=== PATIENT | female | born 1945 | race Caucasian/White ===

== ENCOUNTER → 2018-12-15 | Outpatient (CLI) | payer OTHER ==
[~2018-12-15] MED LIST: ADVIL100 M2 PO; ASPIRIN EC81 M1 PO; BIOTIN2500 MCG; CALTRATE 600 +1 EACH PO; FISH OIL 1,0001 EAC5 PO; GLUCOSAMINE CH1 EAC8 PO; HYDROCODONE-AP1 EAC6 PO; LOSARTAN-HCTZ1 EAC1 PO; LOVASTAT40; MELOXICAM7.5 MG PO; MULTIVITAMINS; NAPROSYN500 MG PO; OXYBUTYNIN 5 MG5 M2; TIROSINT100 MCG PO; TRAMADOL 50 MG50 MG PO; VITAMINC500 PO
== END ==
LOC: RAD 01:10
DX: Z12.31 Encounter for screening mammogram for malignant neoplasm of breast (principal)

== ENCOUNTER → 2018-12-24 | Outpatient (CLI) | payer OTHER ==
[~2018-12-24] VITALS: Ht 157.5 cm; Wt 77.1 kg
[~2018-12-24] MED LIST changes: +GLUCOPHAGE XR500 MG PO; +LOVASTATIN 20 M20 MG PO; +OXYBUTYNIN CHLO15 MG PO; +PRESERVISION A1 EAC2 PO; +SYNTHROID112 MC1 PO
--- NOTE | ~2018-12-24 | P ---
[facility] [place] [address] [address] PROCEDURE REPORT Name: VÍCTOR EPPERSON [facility] [id number] Admission: 12/24/18 ������������������ Attend Phys: Ok Arriaga MD Discharge: ������������������ Date of : 41 Report #: [id number] THIS REPORT FOR: //name// CC: Ok Arreola MD TYPE OF REPORT: Outpatient colonoscopy report. BRIEF HISTORY: The patient is a 73-year-old woman with history of colon polyps. Last colonoscopy was 4-1/2 years ago. Prep was limited at that time. PREOPERATIVE DIAGNOSIS: High-risk screening colonoscopy due to history of colon polyps. POSTOPERATIVE DIAGNOSES: 1. Multiple colon polyps. 2. Hyfftoep-lq-prlusu sigmoid diverticulosis coli. 3. Hmffy-pa-pmzhogwz internal hemorrhoids. MEDICATIONS: Deep sedation with propofol per Anesthesia. SPECIMENS: 1. Polyp, distal ascending colon. 2. Polyp, proximal transverse colon. 3. Polyp at 80 cm. 4. Polyp at 60 cm. ESTIMATED BLOOD LOSS: 3 mL. PROCEDURE: Colonoscopy to cecum and terminal ileum with snare polypectomy and biopsy. FINDINGS: Prior to propofol sedation, procedure of colonoscopy was discussed with the patient as well as potential risks and its complications. She indicates she understands and desires to proceed. DESCRIPTION OF PROCEDURE: With the patient in left lateral decubitus position, digital examination was completed, which revealed no abnormalities. Subsequently, the Olympus video colonoscope was introduced in the rectum, advanced under direct vision to the cecum, done with minimal difficulty. The cecum was identified by the ileocecal valve and the appendiceal orifice. I was able to visualize the distal segment of the terminal ileum, which was inspected and noted to be unremarkable. At that point, the scope was slowly withdrawn and careful circumferential views obtained including retroflexing the scope in the ascending colon. Upon slow withdrawal of the scope, the prep was good. The mucosa was within normal limits, normal vascular pattern and normal light [address] [address] PROCEDURE REPORT Name: VÍCTOR EPPERSON Room #: REG [facility].#: [id number] Admission: 12/24/18 ������������������ Attend Phys: Ok Arriaga MD Discharge: ������������������ Date of : 43 Report #: [id number] reflex. As we withdrew the scope, no abnormalities were noted until the distal ascending colon was reached at which point a 6-7 mm flat polyp was seen on the edge of a fold removed by cold snare polypectomy and recovered. In the proximal transverse colon, a slightly smaller polyp was seen. It was also flat. It was removed by cold snare polypectomy as well. The scope was further withdrawn and at 80 cm, a 5-6 mm sessile polyp was seen and removed by cold snare polypectomy. Scope was further withdrawn and at 60 cm, a diminutive polyp was seen and removed with biopsy forceps. As the scope was drawn through the remainder of the left colon, in particular the sigmoid colon, there was noted be imvaswjq-re-zwslte diverticulosis coli. There was no endoscopic evidence of diverticulitis. The scope was withdrawn into the rectum and upon retroflexion, [place]od[place]-we-dlgzkwnm internal hemorrhoids were seen. Scope was withdrawn and the patient tolerated the procedure well. CONDITION OF THE PATIENT UPON DISCHARGE: Following the procedure, the patient drowsy, arousable and conversant and will be discharged home when fully ambulatory. INSTRUCTIONS TO THE PATIENT AND FAMILY AT THE TIME OF DISCHARGE: Total 4 polyps were identified and removed today. We will follow up on the path. If 3 or more of these polyps are adenomatous or serrated lesions, she should return in 3 years. Otherwise, she should return in 5 years for followup colonoscopy. ��������������������������������������������� ���������������������������������������� By: ��������������������������������������������� 0819 1059 Ok Arriaga MD /lata
--- NOTE | 2018-12-25 17:06 | PATH ---
[facility] [place] [address] PATHOLOGY RPT PROCEDURE Name: VÍCTOR EPPERSON Room #: REG [facility] M.R.#: [id number] ������������������ Admission: 12/24/18 ������������������ Date of : 41 Discharge: Report #: [id number] Path Case #: [id number] [facility] Accession Number: [id number] . 01 Material submitted: . PART A: POLYP AT DISTAL ASCENDING COLON PART B: POLYP AT PROXIMAL TRANSVERSE COLON PART C: POLYP AT 80CM PART D: BX POLYP AT 60CM . 01 Clinical history: . Pre-OP DX: Hx polyps Post-OP DX: Colon polyps, diverticulosis, hemorrhoids . 02 Diagnosis: A. Polyp, distal ascending colon, endoscopic biopsy: - Hyperplastic polyp. - Negative for dysplasia. . B. Polyp, at proximal transverse colon, endoscopic biopsy: - Serrated polyp. - Negative for dysplasia. . C. Polyp, at 80 cm, endoscopic biopsy: - Tubular adenoma. - Negative for high grade dysplasia. . D. Polyp, at 60 cm, endoscopic biopsy: - Tubular adenoma. - Negative for high grade dysplasia. . (IUV:mml; 12/25/2018) QLM/12/25/2018 . 02 Electronically signed: . Mena Mckenzie MD, Pathologist NPI- [id number] . 01 Gross description: . A. Received in formalin labeled "Víctor Epperson, polyp distal ascending colon," are 5 segments of [place]ford soft tissue measuring 1.9 x 1.1 x 0.4 cm in aggregate dimensions and ranging from 0.3 to 1.0 cm in maximum dimension. The specimen is submitted entirely in cassette A1. . B. Received in formalin labeled "Víctor Epperson, polyp at proximal transverse colon," is a single segment of st[place]ford soft tissue measuring 0.8 cm in maximum dimension. The specimen is entirely submitted [place] [address] PATHOLOGY RPT PROCEDURE Name: VÍCTOR EPPERSON Room #: REG [facility]#: [id number] ������������������ Admission: 12/24/18 ������������������ Date of : 43 Discharge: Report #: [id number] Path Case #: [id number] . C. Received in formalin labeled "Víctor Epperson, polyp at 80 cm," is a single segment of st[place]ford soft tissue measuring 0.8 cm in maximum dimension. The specimen is entirely submitted in cassette C1. . D. Received in formalin labeled "Víctor Epperson, BX polyp at 60 cm," is a single segment of [place]ford soft tissue measuring 0.4 cm in maximum dimension. The specimen is entirely submitted in cassette D1. (TSD; 12/24/2018) TOB/TOB . 02 Pathologist provided ICD-10: K63.5, D12.6 . 02 CPT . 533236, 786021, 406642, 215690 Specimen Comment: A courtesy copy of this report has been sent to Specimen Comment: [phone], . Specimen Comment: Report sent to / DR SELBY Performed at: [address], [place] [id number] MD Montana Thao MD Phone: [phone] Performed at: [address] [id number] MD Mena Mckenzie MD Phone: [phone]
== END | disposition home or self-care (01) ==
LOC: GI 06:33
DX: Z12.11 Encounter for screening for malignant neoplasm of colon (principal); D12.3 Benign neoplasm of transverse colon; D12.4 Benign neoplasm of descending colon; K63.5 Polyp of colon; K57.30 Diverticulosis of large intestine without perforation or abscess without bleeding; K64.8 Other hemorrhoids; I10 Essential (primary) hypertension; E78.5 Hyperlipidemia, unspecified; E03.9 Hypothyroidism, unspecified; E11.9 Type 2 diabetes mellitus without complications; Z98.890 Other specified postprocedural states; Z86.010 Personal history of colon polyps; Z87.891 Personal history of nicotine dependence; Z90.710 Acquired absence of both cervix and uterus; Z90.49 Acquired absence of other specified parts of digestive tract; Z88.8 Allergy status to other drugs, medicaments and biological substances; Z79.899 Other long term (current) drug therapy; Z79.84 Long term (current) use of oral hypoglycemic drugs
CPT/HCPCS: 62110; 62900

== ENCOUNTER → 2019-02-12 | Outpatient (CLI) | payer OTHER | LOC: MRI 09:45 | DX: M47.816 Spondylosis without myelopathy or radiculopathy, lumbar region (principal); M51.27 Other intervertebral disc displacement, lumbosacral region; N28.1 Cyst of kidney, acquired; Z88.1 Allergy status to other antibiotic agents ==

== ENCOUNTER → 2019-02-18 | Outpatient (CLI) | payer OTHER ==
[2019-02-18 09:13] LABS: CREATININE 0.8 mg/dL (0.6-1.0)
== END ==
LOC: CAT 08:05
PROVIDERS: Family Medicine
DX: N28.89 Other specified disorders of kidney and ureter (principal); Z88.1 Allergy status to other antibiotic agents; Z90.49 Acquired absence of other specified parts of digestive tract

== ENCOUNTER → 2019-02-24 | Outpatient (CLI) | payer OTHER ==
[~2019-02-24] VITALS: Ht 157.5 cm; Wt 80.2 kg
[~2019-02-24] MED LIST changes: +CYMBALTA30 MG PO; +LOSARTAN-HCTZ1 EACH PO; +MYRBETRIQ50 MG PO
[2019-02-24 10:50] VITALS: BP 124/79
--- NOTE | 2019-02-24 11:22 | NUR ---
Pain Clinic Assessment: 1. History of Osteoarthritis: Not Applicable History of Rheumatoid Arthritis: Not Applicable 2. Height: 5 ft. 2 in. 157.5 cm. Weight: 176.8 lb. oz. 80.196 kg. Patient's BMI: 32.3 3. Vital Signs: BP: 124/79 Pulse: 88 Resp: 16 Temp: 02 Sat: 96 ECG Mon: 4. Pain Intensity: 8 5. Fall Risk: Dizziness: Y Needs help standing or walking: N Fallen in the last 3 months: N Fall risk comments: 6. Patient on Blood Thinner: None 7. History of Hypertension: Y 8. Opioid Therapy greater than 6 weeks: N Opiate Contract Signed: 9. Risk Assessment Tool Provided: LOW RISK 11/05 10. Functional Assessment Tool: 11. Recreational Drug Use: Never Drug Type: Tobacco Use: Former Smoker Tobacco Type: Amount or Packs/day: How Many Years: Alcohol Use: Yes Frequency: Weekly Quant: 1
== END ==
LOC: PAIN 07:10
DX: M54.5 Low back pain (principal); M79.651 Pain in right thigh; Z87.891 Personal history of nicotine dependence

== ENCOUNTER → 2019-03-02 | Outpatient (CLI) | payer OTHER ==
[~2019-03-02] VITALS: Ht 157.5 cm; Wt 80.5 kg
[2019-03-02 08:10] VITALS: BP 140/96
--- NOTE | 2019-03-02 08:13 | NUR ---
Pain Clinic Assessment: 1. History of Osteoarthritis: Not Applicable History of Rheumatoid Arthritis: Not Applicable 2. Height: 5 ft. 2 in. 157.5 cm. Weight: 177.4 lb. oz. 80.468 kg. Patient's BMI: 32.4 3. Vital Signs: BP: 140/96 Pulse: 97 Resp: 18 Temp: 02 Sat: 93 ECG Mon: 4. Pain Intensity: 5 5. Fall Risk: Dizziness: N Needs help standing or walking: N Fallen in the last 3 months: N Fall risk comments: \ 6. Patient on Blood Thinner: None 7. History of Hypertension: Y 8. Opioid Therapy greater than 6 weeks: N Opiate Contract Signed: 9. Risk Assessment Tool Provided: LOW RISK 11/05 10. Functional Assessment Tool: 11. Recreational Drug Use: Never Drug Type: Tobacco Use: Former Smoker Tobacco Type: Amount or Packs/day: How Many Years: Alcohol Use: Yes Frequency: Weekly Quant: 1
--- NOTE | 2019-03-03 12:39 | HPC ---
[facility] [place] [address] PAIN MANAGEMENT CONSULTATION Name: VÍCTOR EPPERSON [facility] [id number] Admission: 03/02/19 ������������������ Attend Phys: Cong Harris DO Discharge: ������������������ Date of : 43 Report #: [id number] THIS REPORT FOR: //name// CC: Cong Arreola MD DATE OF SERVICE: 03/02/2019 CHIEF COMPLAINT: Low back pain, right lower extremity pain and paresthesias. HISTORY OF PRESENT ILLNESS: As you know, the patient is a 73-year-old female who was seen in consultation 02/24/2019 for suspected lumbar radiculopathy. At that visit, the patient was complaining of 8/10 pain involving low back and right lower extremity. She was established to today's appointment to undergo a lumbar epidural injection under fluoroscopic guidance as scheduling conflicts precluded the patient from undergoing the procedure at last visit. She returns today in followup visit reporting pain at a level of 5/10. She has had no change in medical history since our last visit. There has been no new injury or trauma. She returns to undergo lumbar epidural injection under fluoroscopic guidance. ALLERGIES: "MYCINS." CURRENT MEDICATIONS: See chart. SOCIAL HISTORY: The patient denies tobacco, alcohol or IV illicit drug use. She is retired, retired years ago, unaccompanied today. IMAGING: No new imaging available. PQRS: The patient has known osteoarthritic changes of the lumbar spine and bilateral hips. No rheumatoid arthritis. She is placing pain intensity 5/10, not a fall risk, has not had a fall in the last 3 months. She is not on blood thinners. She is treated for hypertension. She is not on opioids and does have a low opioid addiction potential. Pain impact score again 32/70 indicating moderate interference of daily activities secondary to pain. PHYSICAL EXAMINATION: VITAL SIGNS: Blood pressure 138/94, pulse is 75, respiratory rate 18 and unlabored. The patient is 94% on room air. Height 5 feet 2 inches tall, weight 177.4 pounds, BMI calculated 32.4. GENERAL: Well-developed, well-nourished, well-hydrated exogenously obese 73-year-old female appearing stated age. She is placing pain score today 5/10. HEENT: Normocephalic, atraumatic. Pupils equal, round, reactive to light. EXTREMITIES: Show no clubbing, no cyanosis, and no edema. [facility] [address] [place] [address] PAIN MANAGEMENT CONSULTATION Name: VÍCTOR EPPERSON Room #: REG [facility]#: [id number] Admission: 03/02/19 ������������������ Attend Phys: Cong Harris DO Discharge: ������������������ Date of : 43 Report #: [id number] MUSCULOSKELETAL: Lower extremity strength is equal and symmetrical 5/5. Deconditioning noted bilaterally in the lower extremities. Ankle clonus negative. Babinski is negative. Seated straight leg raising negative. Supine straight leg raising positive right. ASSESSMENT: 1. Symptomatic lumbar radiculopathy. 2. Lumbosacral spondylosis with radiculopathy. 3. Lumbar degeneration. 4. Chronic intractable pain. PLAN: 1. The patient returns today in followup visit to undergo first in the series of lumbar epidural injections under fluoroscopic guidance. The patient has been advised of the risks and the benefits of a lumbar epidural injection. These risks include but are not necessarily limited to bleeding, bruising, infection, worsening pain, no relief of pain, also risk of temporary or permanent muscle weakness, temporary or permanent nerve damage, possible paralysis and . The patient states understood and wished to proceed. 2. No medication changes were made at today's visit. The patient will continue current medical therapy as previously prescribed. 3. We will see the patient back in followup visit on an as needed basis for possible next in the series of lumbar epidural injections. DESCRIPTION OF PROCEDURE: L4-L5 right paramedian epidural steroid injection under fluoroscopic guidance. This is the first procedure of the first series that the patient is undergoing. After obtaining written consent, the patient was taken back to the fluoroscopy suite, placed in a prone position with pillow under the abdomen to decrease lumbar lordosis. The skin overlying the lumbosacral area was then prepped and draped in aseptic fashion. The L4-L5 vertebral interspace was then identified by AP fluoroscopy. The skin and subcutaneous tissue overlying the target site of injection was anesthetized with 3 mL 1% lidocaine. A 20 gauge 3-1/2 inch Tuohy needle was then advanced under fluoroscopic guidance towards the epidural space using a right paramedian approach. The epidural space was identified using loss of resistance to air technique. After negative aspiration for heme or cerebrospinal fluid, a total of 1 mL of Omnipaque was injected. A lumbar epidurogram was confirmed using both AP and lateral fluoroscopy. After negative aspiration for heme or cerebrospinal fluid, 5 mL of a solution containing 2 mL 40 mg per mL, 80 mg total triamcinolone and 3 mL lidocaine 1% was injected in increments. Contrast spread was noted posterior epidural space. The needle was then retracted approximately half way and needle tract flushed with 1 mL of 1% lidocaine. Needle was then removed. There were [facility] [address] [place] [address] PAIN MANAGEMENT CONSULTATION Name: VÍCTOR EPPERSON Room #: REG [facility]#: [id number] Admission: 03/02/19 ������������������ Attend Phys: Cong Harris DO Discharge: ������������������ Date of : 41 Report #: [id number] no apparent sensory or motor deficits in the lower extremity following the procedure. A sterile bandage was placed over the injection site. The heart rate, pulse, oximetry and blood pressure were continuously monitored after the procedure. There were no apparent complications. The patient tolerated the procedure well and was carefully escorted to the recovery room in stable condition. There were no apparent complications. After meeting discharge criteria, the patient was then discharged home. ��������������������������������������������� <ELECTRONICALLY SIGNED> ���������������������������������������� By: Cong Harris DO ��������������������������������������������� 03/03/19 1239 0850 0047 Cong Harris DO /nt
== END | disposition home or self-care (01) ==
LOC: PAIN 06:55
DX: M51.16 Intervertebral disc disorders with radiculopathy, lumbar region (principal); M47.27 Other spondylosis with radiculopathy, lumbosacral region; G89.29 Other chronic pain; I10 Essential (primary) hypertension; E66.9 Obesity, unspecified; Z88.8 Allergy status to other drugs, medicaments and biological substances; Z68.32 Body mass index [BMI] 32.0-32.9, adult; Z87.891 Personal history of nicotine dependence; Z79.899 Other long term (current) drug therapy; Z79.84 Long term (current) use of oral hypoglycemic drugs

== ENCOUNTER → 2019-07-20 | Outpatient (CLI) | payer OTHER | LOC: CAT 11:44 | DX: I67.82 Cerebral ischemia (principal); G31.9 Degenerative disease of nervous system, unspecified; R41.0 Disorientation, unspecified; E11.9 Type 2 diabetes mellitus without complications; Z79.84 Long term (current) use of oral hypoglycemic drugs; Z99.2 Dependence on renal dialysis ==

== ENCOUNTER → 2019-08-10 | Outpatient (CLI) | payer OTHER ==
[~2019-08-10] VITALS: Ht 157.5 cm; Wt 83.1 kg
[~2019-08-10] MED LIST changes: +ASPIR 8181 MG PO; +LOSARTAN-HCTZ1 EAC3 PO; -LOSARTAN-HCTZ1 EACH PO; +METFORMIN HCL500 MG PO
[2019-08-10 09:25] VITALS: BP 142/79
--- NOTE | 2019-08-10 09:44 | NUR ---
Pain Clinic Assessment: 1. History of Osteoarthritis: SPINE History of Rheumatoid Arthritis: DENIES 2. Height: 5 ft. 2 in. 157.5 cm. Weight: 183.2 lb. oz. 83.099 kg. Patient's BMI: 33.5 3. Vital Signs: BP: 142/79 Pulse: 93 Resp: 20 Temp: 02 Sat: 97 ECG Mon: 4. Pain Intensity: 8 5. Fall Risk: Dizziness: Y Needs help standing or walking: Y Fallen in the last 3 months: Y Fall risk comments: \ 6. Patient on Blood Thinner: None 7. History of Hypertension: Y 8. Opioid Therapy greater than 6 weeks: N Opiate Contract Signed: 9. Risk Assessment Tool Provided: LOW RISK 11/05 10. Functional Assessment Tool: 11. Recreational Drug Use: Never Drug Type: Tobacco Use: Former Smoker Tobacco Type: Amount or Packs/day: How Many Years: Alcohol Use: Yes Frequency: Weekly Quant:
--- NOTE | 2019-08-17 08:01 | HPC ---
[address] [address] PAIN MANAGEMENT CONSULTATION Name: VÍCTOR EPPERSON Room #: REG [facility] Madyson.#: [id number] Admission: 08/10/19 Attend Phys: Cong Harris DO Discharge: Date of : 41 Report #: [id number] THIS REPORT FOR: //name// CC: Cong Arreola MD DATE OF SERVICE: 08/10/2019 CHIEF COMPLAINT: Low back pain, right lower extremity pain with paresthesias. HISTORY OF PRESENT ILLNESS: As you know, the patient is a 74-year-old female who was referred to our clinic to discuss treatment options for suspected lumbar radiculopathy. She has undergone epidural injections in 2012, returning again in 2012 per the request of the PCP for addressing facet arthropathy pain. She progressed all the way to right L3, L4, and L5 medial branch nerve blocks and RFL of the medial branch nerves with no improvement in symptoms. She then has been lost to followup visit until 02/24/2019, being referred back to our clinic with lumbar radicular symptoms. She underwent an epidural injection on 03/02/2019 with some improvement in symptoms of about 50% total, but unfortunately, her symptoms returned. She returns today per the request of Dr. Arreola to discuss second in the series of epidural injections. As you are aware, the patient suffers from changes in the lumbar spine, which may ultimately need surgical decompression, specifically, the far lateral recess disk protrusion affecting the right L5 nerve root causing compressive forces in that level. She has been referred back to our clinic to trial an epidural injection. If this is unsuccessful, then she is planning to have a surgical consultation. The patient denies any new injuries or traumas that may have led to symptoms reoccurrence. ALLERGIES: "MYCINS" CURRENT MEDICATIONS: See chart. SOCIAL HISTORY: The patient denies tobacco, alcohol, IV or illicit drug use. She is retired, retired years ago, unaccompanied today. IMAGING: No new imaging available. PQRS: The patient has known arthritic changes of the lumbar spine, bilateral hips. Denies rheumatoid arthritis. She is placing pain at 8/10. She is a fall risk, has had a fall in the last 3 months, where she has been unable to ambulate and trip and fell. She is not on blood thinners. She is treated for hypertension. She is not on chronic opioid. She has a low opiate addiction potential. Pain impact score 32/70, moderate interference of daily activities secondary to pain. [address] [address] PAIN MANAGEMENT CONSULTATION Name: VÍCTOR EPPERSON [facility] [id number] Admission: 08/10/19 Attend Phys: Cong Harris DO Discharge: Date of : 43 Report #: [id number] PHYSICAL EXAMINATION: VITAL SIGNS: Blood pressure 142/79, pulse 93, respiratory rate 20 and unlabored. The patient is 97% on room air. Height 5 feet 2 inches tall, weight 183.2 pounds, BMI calculated 33.5. GENERAL: Well-developed, well-nourished, well-hydrated exogenously obese 74-year-old female appearing stated age, pain is rated today at 8/10. HEENT: Normocephalic, atraumatic. Pupils equal, round, reactive to light. EXTREMITIES: Show no clubbing, no cyanosis, and no edema. MUSCULOSKELETAL: Lower extremity strength is symmetrical again today 5/5. Deconditioning noted bilaterally in the lower extremities. Seated straight leg raising negative. Supine straight leg raising is positive on the right. Nelly's test negative. Gait is antalgic favoring right lower extremity over left. ASSESSMENT: 1. Symptomatic lumbar radiculopathy. 2. Displacement of lumbar intervertebral disk with radiculopathy. 3. Lumbosacral spondylosis with radiculopathy. 4. Lumbar degeneration. 5. Chronic intractable pain. PLAN: 1. The patient returns today in followup visit indicating improvement in symptoms of about 50% with the epidural injection provided at last visit. Unfortunately, her symptoms have begun to return. She was referred back to our clinic to trial epidural injections. The patient states she is somewhat frustrated in that her symptoms continued to return. I advised the patient that our epidural injections cannot and will not provide a complete resolution of symptoms permanently. The findings of her MRI at the L4-L5 level will continue to cause problems unless there is decompression of the area. 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 We discussed with the patient the findings of her MRI once again today and discussed the options for treatment. The following was discussed with the patient. We discussed physical therapy, stretching exercises, and concerted effort at weight loss, which will provide some improvement in symptoms. We discussed medication management having the patient started on neuropathic pain medications and a consistent nonsteroidal anti-inflammatory. We discussed reattempting an epidural injection and determine if her symptoms will improve further and finally surgical decompression. After reviewing the risks and benefits of all these proposed treatment options, the patient chose the epidural injection. 2. The patient was advised of risks and benefits of a lumbar epidural injection. These risks include but are not necessarily limited to bleeding, [address] [place] [address] PAIN MANAGEMENT CONSULTATION Name: VÍCTOR EPPERSON Room #: REG [facility].#: [id number] Admission: 08/10/19 Attend Phys: Cong Harris DO Discharge: Date of : 41 Report #: [id number] bruising, infection, worsening of pain, no relief of pain, also risk of temporary or permanent muscle weakness, temporary or permanent nerve damage, possible paralysis, post-dural puncture headache and . The patient states she understood and wished to proceed. 3. No medication changes made at today's visit. The patient will continue current medical therapy as previously prescribed. 3. We will see the patient back in followup visit on an as needed basis for possible next in the series of epidural injections and also discuss the other treatments dictated above. PROCEDURE NOTE DESCRIPTION OF PROCEDURE: L5-S1 right paramedian epidural steroid injection under fluoroscopic guidance. This is the second procedure of the first series that the patient is undergoing. After obtaining written consent, the patient was taken back to the fluoroscopy suite, placed in a prone position with pillow under the abdomen to decrease lumbar lordosis. The skin overlying the lumbosacral area was then prepped and draped in aseptic fashion. The L5-S1 vertebral interspace was then identified by AP fluoroscopy. The skin and subcutaneous tissue overlying the target site of injection was anesthetized with 3 mL 1% lidocaine. A 20-gauge 3-1/2 inch needle was then advanced under fluoroscopic guidance towards the epidural space using a right paramedian approach. The epidural space was identified using loss of resistance to air technique. After negative aspiration for heme or cerebrospinal fluid, a total of 1 mL of Omnipaque was injected. A lumbar epidurogram was confirmed using both AP and lateral fluoroscopy. After negative aspiration for heme or cerebrospinal fluid, 5 mL of a solution containing 2 mL 40 mg per mL, 80 mg total triamcinolone along with 3 mL lidocaine 1% was injected in increments. Contrast spread was noted posterior epidural space. The needle was then retracted approximately half way and needle tract flushed with 1 mL of 1% lidocaine. Needle was then removed. There were no apparent sensory or motor deficits in the lower extremity following the procedure. A sterile bandage was placed over the injection site. The heart rate, pulse, oximetry and blood pressure were continuously monitored after the procedure. There were no apparent complications. The patient tolerated the procedure well and was carefully escorted to the recovery room in stable condition. There were no apparent complications. After meeting discharge criteria, the patient was then discharged home. <ELECTRONICALLY SIGNED> By: Cong Harris DO 08/17/19 0801 1724 1022 Cong Harris DO /nt
== END | disposition home or self-care (01) ==
LOC: PAIN 08-04 10:12
DX: M51.16 Intervertebral disc disorders with radiculopathy, lumbar region (principal); M47.27 Other spondylosis with radiculopathy, lumbosacral region; G89.29 Other chronic pain; I10 Essential (primary) hypertension; Z88.8 Allergy status to other drugs, medicaments and biological substances; Z87.891 Personal history of nicotine dependence; Z79.82 Long term (current) use of aspirin; Z79.899 Other long term (current) drug therapy

== ENCOUNTER → 2019-08-19 | Outpatient (CLI) | payer OTHER ==
[2019-08-19 09:57] LABS: CREATININE 0.8 mg/dL (0.6-1.0)
== END ==
LOC: MRI 09:15
PROVIDERS: Family Medicine
DX: R90.82 White matter disease, unspecified (principal); G45.9 Transient cerebral ischemic attack, unspecified

== ENCOUNTER 2021-04-01 15:24 | Inpatient (IN) | payer OTHER ==
[~2021-04-01] VITALS: Ht 157.5 cm; Wt 77.1 kg
[2021-04-01 15:43] LABS: ABSOLUTE NEUTROPHILS 4.5 thou/uL (1.4-8.2); EOSINOPHILS 3.8 % (0.0-3.0); HEMATOCRIT 46.5 % (37.0-47.0); HEMOGLOBIN 15.6 gm/dL (12.0-15.0); LYMPHOCYTES 33.2 % (24.0-44.0); MCH 31.6 pg (26.0-34.0); MCHC 33.6 g/dL (28.0-37.0); MCV 94.2 fL (80.0-100.0); MONOCYTES 7.8 % (1.0-8.0); PLATELET COUNT 252 thou/uL (150-400); POLYS 54.2 % (36.0-66.0); RBC 4.93 mil/uL (4.20-5.00); RDW 14.2 % (10.5-14.5); WBC 8.3 thou/uL (4.0-11.0)
[2021-04-01 15:50] LABS: ANION GAP 12 mmol/L (7-16); BUN 28 mg/dL (7-18); CHLORIDE 103 mmol/L (98-107); CO2 26 mmol/L (21-32); CREATININE 0.9 mg/dL (0.6-1.0); GLUCOSE 197 mg/dL (74-106); POTASSIUM 4.1 mmol/L (3.5-5.1); SODIUM 141 mmol/L (136-145)
[2021-04-01 15:58] LABS: INR 0.9; PROTIME 9.9 Seconds (10.5-12.1)
[2021-04-01 16:00] LABS: ALBUMIN 3.5 g/dL (3.4-5.0); SGOT 15 U/L (15-37); SGPT 39 U/L (14-59); TOTAL BILIRUBIN 0.3 mg/dL (0.2-1.0); TOTAL PROTEIN 7.3 g/dL (6.4-8.2); TROPONIN-I <0.06 ng/mL (<0.06)
[2021-04-01 16:30] VITALS: BP 156/81
[2021-04-01] MEDS ORDERED: OXYBUTYNIN CHLO15 MG PO (16:35)
[2021-04-01] MEDS ORDERED: LOVASTATIN 20 M20 MG PO (16:36)
[2021-04-01] MEDS ORDERED: LEVOTHYROXINE125 MCG PO (16:36)
[2021-04-01] MEDS ORDERED: COQ-10100 MG PO (16:40)
[2021-04-01] MEDS ORDERED: PRESERVISION A1 EAC2 PO (16:40)
[2021-04-01 17:43] VITALS: BP 169/91
[2021-04-01 17:52] LABS: URINE BILIRUBIN NEGATIVE (Negative); URINE BLOOD NEGATIVE (Negative); URINE CLARITY CLEAR; URINE COLOR YELLOW; URINE GLUCOSE-RANDOM* NEGATIVE (Negative); URINE KETONES NEGATIVE (Negative); URINE LEUKOCYTES-REFLEX NEGATIVE (Negative); URINE PROTEIN (DIPSTICK) NEGATIVE (Negative); URINE UROBILINOGEN 0.2 E.U./dl (0.2-1.0)
[2021-04-01 17:56] LABS: URINE NITRITE-REFLEX POSITIVE (Negative)
[2021-04-01 18:00] LABS: MUCUS 0-3 Light strn/LPF (None Seen); SQUAMOUS 0-3 Few /LPF (0-3)
[2021-04-01 18:01] LABS: BACTERIA-REFLEX >30 Many /HPF (None Seen); CASTS None Seen /LPF (None Seen); CRYSTALS None Seen /LPF (None Seen); URINE RBC None Seen /HPF (NONE SEEN); URINE WBC-REFLEX 6-15 Few /HPF (0-5)
[2021-04-01 20:11] VITALS: BP 195/111
[2021-04-01 23:30] VITALS: BP 189/92
[2021-04-02 04:24] VITALS: BP 130/83
[2021-04-02 08:09] VITALS: BP 141/74
[2021-04-02 11:48] VITALS: BP 146/91
--- NOTE | 2021-04-02 12:07 | EKG ---
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
[2021-04-02 15:46] VITALS: BP 149/91
[2021-04-02 19:50] VITALS: BP 155/91
--- NOTE | 2021-04-02 22:23 | HC ---
[facility] [place] [address] CONSULTATION Name: VÍCTOR EPPERSON Room #: 215-P ADM IN M.R.#: [id number] Admission: 04/01/21 Attend Phys: Tony Arreola MD Discharge: Date of : 41 Report #: [id number] THIS REPORT FOR: cc: Tony Arreola MD, Neal A. MD Khosla, Parveen K. MD ~ DOC #: [id number] Yogesh Morales MD HISTORY OF PRESENT ILLNESS: This is a 75-year-old female patient who was evaluated because this patient was noticed to have speech difficulty when the son came in to see her. It is not clear how long that weakness was going on because the patient never noticed that she feels she is better. She does not know what brought it on. She does not know if she had these episodes before. She has difficulty with ambulation. She attributes that to problem with imbalance. She said that is going on for several years and she has seen multiple physicians for that. She does not know if one of them was a neurologist. In the Emergency Room, they did a CT scan of the head and CT angiogram and they were mostly unremarkable except for some stenosis of the right internal carotid artery. Then, they admitted and consulted neurology. REVIEW OF SYSTEMS: A 14-point review of system is positive for diabetes. She had a cholecystectomy and hysterectomy in the past. She had a history of hyperlipidemia. Otherwise, she is not complaining of any, ENT, cardiac, respiratory, GI, , musculoskeletal, constitutional, dermatological, hematological, psychiatric, throat, allergic symptom associated with present symptomatology. PAST MEDICAL HISTORY: Negative for stroke, but she says daughter thinks she may have had TIA. She does not tell me why her daughter thinks that way. FAMILY HISTORY: Negative for any early age stroke. SOCIAL HISTORY: She does not smoke. To me, she tells me she does not drink alcohol on a regular basis either. NEUROLOGIC: She is alert, responsive. She knows what month it is, what day it is, what hospital, she tell me who the president is. I do not see much difficulty with speech, but she does have some hesitant speech. 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 She has reasonable strength in all 4 extremities, but strength in general is diminished, especially in the lower extremities, but her position sense is intact and that plantar I cannot elicit properly, but is not classically upgoing, in spite of diabetes I think the knee jerks are present, although it may be diminished, tone looks unremarkable. [address] [place] [address] CONSULTATION Name: VÍCTOR EPPERSON Room #: 215-P ADM IN M.R.#: [id number] Admission: 04/01/21 Attend Phys: Tony Arreola MD Discharge: Date of : 41 Report #: [id number] Yogesh Morales MD PK/SANDY Only part of this consultation which I dictated came. This patient's cardiac and respiratory examination was unremarkable. She had no carotid bruit or mass. Her vision and hearing was adequate. She has no edema cyanosis or jaundice.She was reasonably well built individual. Abdominal examination was unremarkable. Pulses were palpable and she has no edema. The patient's clinical presentation was consistent with either small stroke or TIA. The patient was admitted for that. It was not clear what the etiology of for ataxia was. That may be a separate issue but it need to be addressed. The patient was admitted. She will have an MRI. In the meantime we gave her Plavix. She will be on a combination of aspirin and Plavix. Further management will be done accordingly. As I mentioned only part of my dictation had come and this point I have added from my memory <ELECTRONICALLY SIGNED> By: Yogesh Morales MD 04/02/212222 26 21 Yogesh Morales MD /nt
[2021-04-03 04:45] VITALS: BP 121/75; BP 146/64
[2021-04-03 08:30] VITALS: BP 144/78
--- NOTE | 2021-04-03 10:26 | 2DMMODE ---
[facility] [place] [address] 2 D/M-MODE ECHOCARDIOGRAM Name: VÍCTOR EPPERSON Room #: 215-P ADM IN M.R.#: [id number] Admission: 04/01/21 Attend Phys: Tony Arreola MD Discharge: Date of : 41 Report #: [id number] THIS REPORT FOR: cc: Tony Arreola MD, Neal A. MD Santiago, Patrick MD [facility] ~ APPROVED REPORT Study performed: 04/03/2021 08:55:13 EXAM: Comprehensive 2D, Doppler, and color-flow Echocardiogram Patient Location: In-Patient Room #: 215 BSA: 1.78 HR: 89 bpm BP: 141/74 mmHg Rhythm: NSR Other Information Study Quality: Adequate Risk Factors: Cardiac Risk Factors: HTN Indications CVA/TIA Hypertension/HDD 2D Dimensions IVSd: 10.03 (7-11mm) LVOT Diam: 21.31 (18-24mm) LVDd: 34.73 mm PWd: 10.68 (7-11mm) LVDs: 19.67 (25-40mm) Left Atrium: 31.12 (27-40mm) Aortic Root: 27.57 mm Volumes Left Atrial Volume (Systole) Single Plane 4CH: 26.05 mL Single Plane 2CH: 20.94 mL Biplane LA Volume: 25.00 mL LA ESV Index: 14.00 mL/m2 Aortic Valve AoV Peak Justin.: 1.90 m/s [facility] [address] [place] [address] 2 D/M-MODE ECHOCARDIOGRAM Name: VÍCTOR EPPERSON Alexander Room #: 215-P [facility] IN ..#: [id number] Admission: 04/01/21 Attend Phys: Tony Arreola, Discharge: Date of : 41 Report #: [id number] AO Peak Gr.: 14.46 mmHg LVOT Max P.65 mmHg LVOT Max V: 1.08 m/s YULIYA Vmax: 2.02 cm2 Mitral Valve MV Peak Gr.: 6.40 mmHg MV Mean Gr.: 2.27 mmHg E/A Ratio: 0.6 MV Decel. Time: 272.63 ms MV E Max Justin.: 0.69 m/s MV A Justin.: 1.07 m/s MV Max Justin.: 1.26 m/s MV Mean Justin.: 0.65 m/s MV VTI: 234.38 mm MV PHT: 79.06 ms MVA (PHT): 3.71 cm2 IVRT: 79.58 ms Pulmonary Valve PV Peak Justin.: 0.98 m/s PV Peak Gr.: 3.86 mmHg Pulmonary Vein P Vein S: 0.54 m/s P Vein A: 0.30 m/s P Vein D: 0.46 m/s P Vein A Dur.: 124.6 msec P Vein S/D Ratio: 1.17 Tricuspid Valve TR Peak Justin.: 1.09 m/s RAP Estimate: 7.00 mmHg TR Peak Gr.: 4.71 mmHg RVSP: 12.00 mmHg Left Ventricle The left ventricle is normal size. There is normal LV segmental wall motion. There is normal left ventricular wall thickness. Left ventricular systolic function is normal. The left ventricular ejection fraction is within the normal range. LVEF is 65-70%. Transmitral Doppler flow pattern suggests impaired LV relaxation. Right Ventricle The right ventricle is normal size. The right ventricular systolic function is normal. Atria The left atrium size is normal. Injection of bubbles documented no interatrial shunt. The right atrium size is normal. Aortic Valve [address] [address] 2 D/M-MODE ECHOCARDIOGRAM Name: VÍCTOR EPPERSON Room #: 215-P [facility] IN [facility]#: [id number] Admission: 04/01/21 Attend Phys: Tony Arreola, Discharge: Date of : 41 Report #: [id number] The aortic valve is normal in structure. No aortic regurgitation is present. There is no aortic valvular stenosis. Mitral Valve The mitral valve is normal in structure. There is no mitral valve regurgitation noted. No evidence of mitral valve stenosis. Tricuspid Valve The tricuspid valve is normal in structure. Trace tricuspid regurgitation. Pulmonic Valve The pulmonary valve is normal in structure. There is no pulmonic valvular regurgitation. Great Vessels The aortic root is normal in size. IVC is normal in size and collapses >50% with inspiration. Pericardium There is no pericardial effusion. <Conclusion> Normal left ventricular size/wall thickness Ejection fraction 60% Grade 1 diastolic function Normal right ventricular size/function Normal atrial size Color-flow Doppler study performed of the aortic/mitral/tricuspid/pulmonary valve Normal aortic/mitral valve structure and function Trace tricuspid valve insufficiency Normal aortic root size No pericardial effusion No evidence of ASD/VSD by bubble study <ELECTRONICALLY SIGNED> By: Hung Mora MD, FACC 04/03/21 1026 1026 1026 Hung Mora MD, FACC /INF
[2021-04-03 12:33] VITALS: BP 101/63
[2021-04-03] MEDS ORDERED: CEFDINIR300 MG PO (16:25)
[2021-04-03] MEDS ORDERED: CLOPIDOGREL75 MG PO (16:29)
[2021-04-03 16:33] VITALS: BP 143/98
[2021-04-03 16:41] VITALS: BP 143/98
== END 2021-04-03 17:06 | disposition home or self-care (01) | DRG 69 ==
LOC: ER 15:24 → 2N 17:24 → EROBS 17:24 → 2N 17:43
PROVIDERS: Emergency Medicine; ADMIT Psychiatry & Neurology Neuromuscular Medicine; ATTEND Family Medicine
DX: G45.9 Transient cerebral ischemic attack, unspecified (principal); N39.0 Urinary tract infection, site not specified; E78.5 Hyperlipidemia, unspecified; E03.9 Hypothyroidism, unspecified; I10 Essential (primary) hypertension; E11.9 Type 2 diabetes mellitus without complications; R27.0 Ataxia, unspecified; I16.0 Hypertensive urgency; Z90.710 Acquired absence of both cervix and uterus; Z90.721 Acquired absence of ovaries, unilateral; Z90.49 Acquired absence of other specified parts of digestive tract; Z88.1 Allergy status to other antibiotic agents; Z87.891 Personal history of nicotine dependence
CPT/HCPCS: 10081

== ENCOUNTER → 2021-09-20 | Outpatient (CLI) | payer OTHER ==
[~2021-09-20] MED LIST changes: +CEFDINIR300 MG PO; +CLOPIDOGREL75 MG PO; +COQ-10100 MG PO; +LEVOTHYROXINE125 MCG PO
== END | disposition home or self-care (01) ==
LOC: MRI 09:42
PROVIDERS: ATTEND Family Medicine
DX: M47.816 Spondylosis without myelopathy or radiculopathy, lumbar region (principal); R29.898 Other symptoms and signs involving the musculoskeletal system

== ENCOUNTER → 2021-09-21 | Outpatient (CLI) | payer OTHER | LOC: RAD 10:06 → BC 17:14 | PROVIDERS: ATTEND Family Medicine | DX: Z12.31 Encounter for screening mammogram for malignant neoplasm of breast (principal); N64.89 Other specified disorders of breast ==

== ENCOUNTER → 2021-10-23 | Outpatient (CLI) | payer OTHER ==
[~2021-10-23] VITALS: Ht 157.5 cm; Wt 78.6 kg
[~2021-10-23] MED LIST changes: +PLAVIX 75 MG TA75 MG PO
[2021-10-23 09:58] VITALS: BP 168/92
--- NOTE | 2021-10-23 10:15 | NUR ---
Pain Clinic Assessment: 1. History of Osteoarthritis: SPINE History of Rheumatoid Arthritis: DENIES 2. Height: 5 ft. 2 in. 157.5 cm. Weight: 173.2 lb. oz. 78.563 kg. Patient's BMI: 31.7 3. Vital Signs: BP: 168/92 Pulse: 105 Resp: 20 Temp: 02 Sat: 96 ECG Mon: 4. Pain Intensity: 2 5. Fall Risk: Dizziness: Y Needs help standing or walking: Y Fallen in the last 3 months: Y Fall risk comments: \ 6. Patient on Blood Thinner: None 7. History of Hypertension: Y 8. Opioid Therapy greater than 6 weeks: N Opiate Contract Signed: 9. Risk Assessment Tool Provided: LOW RISK 11/05 10. Functional Assessment Tool: 11. Recreational Drug Use: Never Drug Type: Tobacco Use: Former Smoker Tobacco Type: Amount or Packs/day: How Many Years: Alcohol Use: Yes Frequency: Quant:
--- NOTE | 2021-10-24 07:54 | HPC ---
[facility] [place] [address] PAIN MANAGEMENT CONSULTATION Name: VÍCTOR EPPERSON Room #: REG VALENTINA ArceShaeSommer.#: [id number] Admission: 10/23/21 Attend Phys: Cong Harris DO Discharge: Date of : 41 Report #: [id number] THIS REPORT FOR: cc: Tony Arreola MD, Neal A. MD Johnson, James E. DO ~ cc: Tony Arreola MD DATE OF SERVICE: 10/23/2021 CHIEF COMPLAINT: Bilateral lower extremity weakness. HISTORY OF PRESENT ILLNESS: As you know, the patient is a very pleasant 76-year-old female reporting continued bilateral lower extremity weakness. We saw the patient in 2019 where she trialled epidural injections per the request of primary care physician without improvement in symptoms. She continues to experience weakness. She is also experiencing axial back pain for which she submitted to what appears to be radiofrequency lesioning of the medial branch nerves with another pain service without benefit. She returns today in followup visit per the request of Dr. Tony Arreola to discuss her ongoing weakness. She has recently undergone an MRI of the lumbar spine, which shows mild arthritic changes at L4-L5 and L5-S1. No significant central canal or neural foraminal stenosis. No lateralizing feature. No pathology consistent with bilateral lower extremity weakness. She indicates today pain level is only about 2/10 when pain is present. Her concerns are more about weakness in the lower extremities. Weakness is exacerbated with walking and standing, improves with lying down and watching television. ALLERGIES: NIACIN. CURRENT MEDICATIONS: Plavix 75 mg once a day, preservation tablets 2 times per day, Coenzyme Q10 100 mg once a day, lovastatin 20 mg per day, levothyroxine 125 mcg per day, oxybutynin 15 mg once a day, aspirin 81 mg per day, metformin 500 mg 4 times a day, losartan/hydrochlorothiazide 100/25 mg dose 1 tab p.o. at bedtime. SOCIAL HISTORY: The patient denies tobacco, alcohol or IV or illicit drug use. She is retired, retired years ago. She is a , unaccompanied today. IMAGING: MRI of the lumbar spine obtained 09/20/2021 shows T12-L1, L1-L2, L2-L3 and L3-L4 unremarkable. L4-L5 shows bilateral mild facet arthropathy and ligamentum flavum hypertrophy. No significant central canal or neural foraminal stenosis. L5-S1 shows bilateral facet arthropathy and ligamentum flavum hypertrophy. No significant central canal or neural foraminal stenosis. PQRS: The patient has known arthritic changes of the lower lumbar spine, bilateral hips. No rheumatoid arthritis. She is placing pain today 12/13. She [address] [address] PAIN MANAGEMENT CONSULTATION Name: VÍCTOR EPPERSON Room #: REG CLI Supriya#: [id number] Admission: 10/23/21 Attend Phys: Cong Harris DO Discharge: Date of : 41 Report #: [id number] is a fall risk, has had multiple falls in the last 3 months and is now utilizing a roller walker for ambulation. She is on blood thinners in the form of Plavix. She is treated for hypertension. She is not on any opioids, has a low opioid addiction potential based on assessment tool. Pain impact is 32 of 70, moderate interference with daily activities secondary to pain. PHYSICAL EXAMINATION: VITAL SIGNS: Blood pressure 168/92, pulse 105, respiratory rate 20, unlabored. The patient is 96% on room air. Height 5 feet 2 inches tall, weight 173.2 pounds, BMI calculated 31.7. GENERAL: Well-developed, well-nourished, well-hydrated, exogenously obese 76-year-old female appearing stated age, pain is rated a 2/10. HEENT: Normocephalic, atraumatic. Pupils equal, round and responsive. She is wearing a mask in compliance with COVID-19 regulations in hospital policies. EXTREMITIES: Show no clubbing, no cyanosis, no edema. MUSCULOSKELETAL: Lower extremity strength is symmetrical, 5/5. Deconditioning is noted once again bilaterally in the lower extremities. Seated straight leg raising negative. Supine straight leg raising negative. Nelly's test is negative. Gait is slow, but able to toe walk and heel walk. Muscle bulk and tone is equal and symmetrical in bilateral lower extremities. ASSESSMENT: 1. Bilateral lower extremity weakness. 2. Deconditioning. 3. Mild degenerative changes of the lumbar spine. 4. Lumbosacral spondylosis without radicular symptoms. 5. Chronic intractable pain. PLAN: 1. Based on today's physical exam and history the patient provides, the descriptors the patient uses in regards to pain and the generalized weakness she is experiencing, it would appear this is due to deconditioning. We reviewed the patient's MRI, which shows surprisingly mild findings for a 76-year-old exogenously obese female. There are no findings at T12-L1, L1-L2, L3-L4 that would cause the patient's symptomology. The L4-L5 level has some bilateral facet arthropathy as does the L5-S1 level with ligamentum flavum hypertrophy, though there is no central canal or neural foraminal stenosis and no nerve root impingement. We have discussed this with the patient today. Interventional treatment options are not necessary to address weakness as it would be of no benefit and there is no pathology in the lumbar region consistent with the bilateral symptoms that the patient is experiencing. Based on this examination and the mild findings of the MRI, it is determined her symptoms are related to deconditioning. We have discussed with the patient our concerns of her deconditioning and the ongoing source of her bilateral lower extremity weakness. I am unable to elicit any neurologic finding that would be consistent with some underlying myelopathy or neuropathy that would be causing the bilateral weakness [address] [address] PAIN MANAGEMENT CONSULTATION Name: VÍCTOR EPPERSON Room #: REG Kaushik Coughlin.#: [id number] Admission: 10/23/21 Attend Phys: Cong Harris DO Discharge: Date of : 41 Report #: [id number] by physical exam today. We discussed with the patient options for treatment to address deconditioning. We are hopeful the patient will consider this as an option. It does appear from the discussion today that multiple physicians have advised the same treatment. 2. No medication changes made at today's visit. The patient will continue current medical therapy as prior prescribed. 3. We strongly suggested the patient to begin an exercise program, initially could be aqua based, then transitioning on to land-based. I do feel that her sedentary lifestyle is contributing significantly to her perceived weakness in the lower extremities. I was unable to elicit any true muscle weakness in the lower extremities with physical exam. We wish to thank Dr. Arreola for the re-referral of the patient to our clinic. We are hopeful that the consultation today will help direct her care further. Again, we wish to thank you for the opportunity to see the patient in consultation. <ELECTRONICALLY SIGNED> By: Cong Harris DO 10/24/21 0754 1533 0008 Cong Harris DO /nt
== END ==
LOC: PAIN 07:00
PROVIDERS: ATTEND Anesthesiology Pain Medicine
DX: M51.26 Other intervertebral disc displacement, lumbar region (principal); M47.817 Spondylosis without myelopathy or radiculopathy, lumbosacral region; M79.661 Pain in right lower leg; M79.662 Pain in left lower leg; G89.29 Other chronic pain; Z88.8 Allergy status to other drugs, medicaments and biological substances; Z79.82 Long term (current) use of aspirin; Z79.84 Long term (current) use of oral hypoglycemic drugs; Z79.899 Other long term (current) drug therapy